=== PATIENT | female | born 1935 | race Caucasian/White ===

== ENCOUNTER 2016-12-24 07:24 | Inpatient (IN) | payer MEDICARE, OTHER ==
[~2016-12-24] VITALS: Ht 149.9 cm; Wt 47.2 kg
[2016-12-24 08:33] LABS: BASOPHILS 0.1 % (0.0-2.0); EOSINOPHILS 0.1 % (0-7); HEMATOCRIT 36.8 % (36.0-48.0); HEMOGLOBIN 12.5 g/dL (12-16); IMMATURE GRANULOCYTES 0.6 % (0-5); LYMPHOCYTES 4.7 % (15-50); MCH 32.5 pg (26.0-34.0); MCV 95.6 fL (80.0-100.0); MEAN PLATELET VOLUME 8.4 fL (7.4-10.4); NEUTROPHILS 87.5 % (40-80); PLATELET COUNT 244 10x3/uL (130-400); RBC 3.85 10x6/uL (4.00-5.40); RDW 12.7 % (11.5-14.5)
[2016-12-24 08:37] LABS: APTT 32.4 SECONDS (22.8-39.4); INR 1.1 (0.85-1.17); PROTIME 14.1 SECONDS (11.6-15.0)
[2016-12-24 08:44] LABS: ALBUMIN 2.9 g/dL (3.4-5.0); ANION GAP 14.7 mmol/L (8-16); BILIRUBIN - TOTAL 0.68 mg/dL (0.2-1.3); CALCIUM 8.5 mg/dL (8.5-10.1); CARBON DIOXIDE 27.6 mmol/L (21.0-32.0); CREATININE - SERUM 1.1 mg/dL (0.6-1.3); POTASSIUM - SERUM 3.3 mmol/L (3.5-5.1); PROTEIN - SERUM 6.8 g/dL (6.4-8.2)
[2016-12-24 14:00] VITALS: BP 113/52
--- NOTE | 2016-12-24 15:30 | NUR ---
ARRIVED FROM ER, DENIES NEEDS, BED LOWEST POSITION, LEVI MAT BED ALARM ON, NO S/S OF DISTRESS, PAIN ON HER LEFT LABIA TO LEFT BUTTOCKS, IV LT FOREARM NS @75, DENIES PAIN, CALL LIGHT IN REACH, WILL CONTINUE TO MONITOR
--- NOTE | 2016-12-24 16:15 | NUR ---
ASSESSMENT PER ADMIT FLOW SHEET. LEFT LABIA RED AND SWOLLEN WITH SMALL RAISED AREA IN VERY CENTER OF WOUND(APPROXIMATELY ERASER/ PEN HEAD SIZED). SITE IS WITHOUT DRAINAGE. REDNESS GOES ALL THE WAY AROUND AND COVERS THE ENTIRE LEFT BUTTOCK.ENTIRE AREA DESCRIBED IS HARD AND WARM TO TOUCH.
[2016-12-24 16:21] VITALS: BP 113/52; BMI 21.0
[2016-12-24] MEDS ORDERED: CALCIUM 600 +1 EAC3 PO (17:29)
[2016-12-24] MEDS ORDERED: CLARITIN-D1 TAB.SR1 PO (17:30)
[2016-12-24] MEDS ORDERED: SYNTHROID75 MCG PO (17:31)
[2016-12-24] MEDS ORDERED: TRIAMTERENE-HCT1 TA1 PO (17:31)
--- NOTE | 2016-12-24 19:30 | NUR ---
PT RECEIVED SITTING UP IN BED WATCHING TELEVISION. PT DAUGHTER AT BEDSIDE. PT ALERT AND ORIENTED X3. RESPIRATIONS EVEN AND UNLABORED. LUNG SOUNDS CLEAR BILATERALY. ABD SOFT AND NONTENDER UPON PALPATION. PT DENIES PAIN AT THIS TIME. IV TO LEFT WRIST WITH NS @ 75 NOTED TO BE PATENT, DRESSING CLEAN, DRY, AND INACT. IV SITE FREE FROM REDNESS OR EDEMA. PT DENIES NEEDS AT THIS TIME. BED IN LOW POSITION. CALL LIGHT AND H2O IN PT REACH. BED IN LOW POSITION. SIDE RAILS UP X2.
[2016-12-24 20:00] VITALS: BP 92/51
--- NOTE | 2016-12-24 21:30 | NUR ---
PT SITTING UP IN BED WATCHING TELEVISION. NO S/S OF DISTRESS NOTED. RESP EVEN AND UNLABORED. PT DENIES PAIN OR NEEDS AT THIS TIME. PT DAUGHTER AT BEDSIDE. CALL LIGHT AND H2O IN PT REACH. BED IN LOW POSITION. SIDE RAILS UP X2.
--- NOTE | 2016-12-24 23:30 | NUR ---
PT RESTING IN BED WITH EYES CLOSED. NO S/S OF DISTRESS NOTED. RESP EVEN AND UNLABORED. PT DAUGHTER SLEEPING AT BEDSIDE. CALL LIGHT AND H2O IN PT REACH. BED IN LOW POSITION. SIDE RAILS UP X2.
[2016-12-25] VITALS (7 sets, daily range): BP systolic 98–135; BP diastolic 42–74; Ht 149.9 cm; Wt 47.2 kg
--- NOTE | 2016-12-25 04:00 | NUR ---
PATIENT SLEEPING WITH NO DISTRESS NOTED. AGREE WITH VP CORPORATE DEVELOPMENT ASSESSMET.
[2016-12-25 04:49] LABS: BASOPHILS 0.1 % (0.0-2.0); EOSINOPHILS 0.8 % (0-7); HEMATOCRIT 31.3 % (36.0-48.0); HEMOGLOBIN 10.5 g/dL (12-16); IMMATURE GRANULOCYTES 0.8 % (0-5); LYMPHOCYTES 7.7 % (15-50); MCH 32.2 pg (26.0-34.0); MCHC 33.5 g/dL (31.0-37.0); MEAN PLATELET VOLUME 8.3 fL (7.4-10.4); NEUTROPHILS 82.6 % (40-80); PLATELET COUNT 228 10x3/uL (130-400); RBC 3.26 10x6/uL (4.00-5.40); RDW 12.6 % (11.5-14.5); WBC 15.9 10x3/uL (4.8-10.8)
[2016-12-25 05:08] LABS: CALCIUM 7.7 mg/dL (8.5-10.1); CARBON DIOXIDE 24.2 mmol/L (21.0-32.0); CHLORIDE - SERUM 101 mmol/L (98-107); POTASSIUM - SERUM 3.3 mmol/L (3.5-5.1); SODIUM 135 mmol/L (136-145); UREA NITROGEN 18 mg/dL (7-18); eGFR NON AFRICAN AMERICAN 85 mL/min (90-120)
[2016-12-25 05:13] LABS: CALC OSMOLALITY 270 mosm/kg (275-300); CREATININE - SERUM 0.7 mg/dL (0.6-1.3); GLUCOSE 85 mg/dL (74-106)
--- NOTE | 2016-12-25 08:02 | NUR ---
RESTING IN BED, LEVI ALARM ON, BED LOWEST POSIITON, SKIN PREP COMPLETED, SLIGHT COMPLAINT OF PAIN IN BOTTOM WHEN SITTING ON IT, NO DISTRESS NOTED, DENIES NEEDS, BED LOWEST POSITION, CALL LIGHT IN REACH, WILL CONITNUE TO MONITIOR
--- NOTE | 2016-12-25 08:28 | NUR ---
AWAKE AND ALERT AT THIS TIME. FAMILY AT BEDSIDE. PT IS NPO FOR SURGERY TO LEFT LABIA ABSCESS. DENIES NEEDS, CALL LIGHT IN REACH. WILL CONTINUE WITH PLAN OF CARE.
--- NOTE | 2016-12-25 16:54 | NUR ---
Patient Name: CRISTIAN RODRIGEZ Admission Status: ER Accout number: [id number] Admission Date: 12-24-2016 : 1935 Admission Diagnosis:CELLULITIS OF BUTTOCK Attending: KIRAN Current LOS: 1 Anticipated DC Date: 12-28-2016 Planned Disposition: Home Primary Insurance: MEDICARE A & B Discharge Planning Comments: CM MET WITH PATIENT AND FAMILY REGARDING D/C NEEDS AND PLANS. PATIENT STATED SHE HAS 3 STEPS W/O RAILS TO ENTER HOME. WHEN PATIENT DISCHARGES HER DAUGHTERS OR HER FRIEND WILL DRIVE HER HOME. PATIENT IS VERY INDEPENDENT PER HER DAUGHTER AND HAS NO DME AT HOME. PATIENTS PCP IS DR. GONSALES AND USES [facility] IN [place]. PATIENT DOES NOT WANT HOME HEALTH AT THIS TIME AND WANTS TO WAIT AND SEE HOW SHE FEELS CLOSER TO DISCHARGE. CM WILL CONTINUE TO FOLLOW PATIENT WITH D/C NEEDS AND PLANS. PCP [facility] [phone] PAULINO (FRIEND) [phone] ALEX IVEY (DAUGHTER) [phone] Planet[employer] Sky Show Technician: Suellen Fabian Is the patient Alert and Oriented? Yes 0 * How many steps to enter\exit or inside your home? 3 W/O RAIL 0 * PCP DR. GONSALES 0 * Pharm[facility] IN [place] 0 * Preadmission Environment Home Alone 0 * ADLs Independent 0 * Equipment None 0 * List name and contact numbers for known caregivers / representatives who currently or will assist patient after discharge: PAULINO (FRIEND) [phone] ALEX GOOD (DAUGHTER) [phone] 0 * Community resources currently utilized None 0 * Additional services required to return to the preadmission environment? Yes 0 * Can the patient safely return to the preadmission environment? Yes 0 * Has this patient been hospitalized within the prior 30 days at any hospital? No 0 Grand Total: 0
--- NOTE | 2016-12-25 19:30 | NUR ---
PT RECEIVED RESTING IN BED WITH EYES CLOSED. NO S/S OF DISTRESS NOTED AT THIS TIME. SEE SHIFT ASSESSMENTS. PT STATES PAIN IS CONTROLLED WITH DILAUDED POTATO CHIP PACKAGING MACHINE OPERATOR. IV TO LEFT WRIST NOTED TO BE PATENT, DRESSING CLEAN, DRY, AND INTACT, NO REDNESS OR EDEMA NOTED TO SITE. PT IS ALERT AND ORIENTED X4. RESIDENT'S TWO DAUGHTERS AT BEDSIDE. CALL LIGHT AND H2O IN PT REACH. BED IN LOW POSITION. SIDE RAILS UP X2.
--- NOTE | 2016-12-25 21:30 | NUR ---
PT RESTING IN BED WITH EYES CLOSED. NO S/S OF DISTRESS NOTED. RESP EVEN AND UNLABORED. TWO DAUGHTERS REMAIN AT BEDSIDE. CALL LIGHT AND H2O IN PT REACH. STAFF READINESS OFFICER CONTROL IN PT REACH. BED IN LOW POSITION. SIDE RAILS UP X2.
--- NOTE | 2016-12-25 23:30 | NUR ---
PT UP TO TOILET X 1 ASSIST. DRESSING TO BUTTOCK PARTIALLY OFF, DRESSING REINFORCED WITH ABD PAD AND TAPE. NO S/S OF DISTRESS NOTED. RESPIRATIONS EVEN AND UNLABORED. PT DENIES PAIN AT THIS TIME. CALL LIGHT AND H2O IN PT REACH. BED IN LOW POSITION. SIDE RAILS UP X2.
[2016-12-26] VITALS: BP 103/59
--- NOTE | 2016-12-26 01:30 | NUR ---
PT RESTING IN BED WITH EYES CLOSED. NO S/S OF DISTRESS NOTED. RESP EVEN AND UNLABORED. PT ABLE TO VOICE NEEDS, NO COMPLAINTS OR NEEDS VOICED AT THIS TIME. DAUGHTER SLEEPING AT BEDSIDE. CALL LIGHT AND H2O IN PT REACH. BED IN LOW POSITION. SIDE RAILS UP X2.
--- NOTE | 2016-12-26 04:00 | NUR ---
PATIENT SLEEPING WITH NO DISTRESS NOTED. CALL LIGHT WITHIN REACH.
[2016-12-26 07:40] LABS: BASOPHILS 0.2 % (0.0-2.0); EOSINOPHILS 1.1 % (0-7); HEMOGLOBIN 10.4 g/dL (12-16); IMMATURE GRANULOCYTES 2.1 % (0-5); LYMPHOCYTES 7.1 % (15-50); MCH 32.3 pg (26.0-34.0); MCHC 32.5 g/dL (31.0-37.0); MEAN PLATELET VOLUME 8.3 fL (7.4-10.4); MONOCYTES 6.5 % (2-11); PLATELET COUNT 246 10x3/uL (130-400); RBC 3.22 10x6/uL (4.00-5.40); RDW 12.9 % (11.5-14.5); WBC 15.5 10x3/uL (4.8-10.8)
[2016-12-26 07:47] LABS: MCV 99.4 fL (80.0-100.0)
[2016-12-26 07:59] LABS: CALC OSMOLALITY 279 mosm/kg (275-300); CALCIUM 7.4 mg/dL (8.5-10.1); CARBON DIOXIDE 21.1 mmol/L (21.0-32.0); CHLORIDE - SERUM 104 mmol/L (98-107); CREATININE - SERUM 0.6 mg/dL (0.6-1.3); GLUCOSE 88 mg/dL (74-106); POTASSIUM - SERUM 3.6 mmol/L (3.5-5.1); SODIUM 140 mmol/L (136-145); UREA NITROGEN 19 mg/dL (7-18); eGFR NON AFRICAN AMERICAN > 90 mL/min (90-120)
--- NOTE | 2016-12-26 08:00 | NUR ---
PATIENT AWAKE/ORIENT X4. OCYGEN ON AT 2L PER N/C. LEFT WRIST PERIPHERAL LINE NS AT 65CC/HR. DENIES ANY PAIN/DISC AT THIS TIME. PAS MANAGER GRAPHIC DILUDID. DAUGHERS AT BEDSIDE. CALL LIGHT WITHIN REACH. PATIENT VOICES NO NEEDS AT THIS TIME
--- NOTE | 2016-12-26 08:03 | NUR ---
CONTACT ISOLATION FOR MRSA IN WOUND MAINTAINED. PATIENT AWAKE/ALERT/ORIENT X4. PICC LINE IN RIGHT UPPER ARM PTN AT 50CC/HR. CAREER COORDINATOR MORPHINE PUMP. PATIENT DENIES ANY PAIN/DISC AT THIS TIME. CALL LIGHT WITHIN REACH. VOICES NO NEEDS AT THIS TIME
[2016-12-26 08:38] VITALS: BP 101/58
--- NOTE | 2016-12-26 08:50 | NUR ---
PATIENT IN BED WITH NO COMPLAINTS. DRESSING COMING OFF AT THIS TIME. EXPLAINED TO GONZALO DRAKE TO REINFORCE DRESSING AND WAIT TO GET ORDERS TO REMOVE PACKING. VERBALIZED UNDERSTANDING.
--- NOTE | 2016-12-26 10:00 | NUR ---
DAUGHTERS REMAIN IN ROOM WITH PATIENT. HELPING PATIENT TO AND FROM BATHROOM
--- NOTE | 2016-12-26 11:10 | NUR ---
PATIENT PUT IN CONTACT ISOLATION FOR MRSA IN WOUND BED.
--- NOTE | 2016-12-26 13:00 | NUR ---
DRESSING TO OUTTER LABIA AND BOTTOCKS FALLING OUT. KERLEX DRESSING REMOVED AND 4X4'S APPLIED. INNER PACKING OF DRESSING NOT TOUCHED.
[2016-12-26 13:04] VITALS: BP 99/54
[2016-12-26 16:43] VITALS: BP 91/48
--- NOTE | 2016-12-26 17:36 | NUR ---
DR CASTELLANOS HERE. ORDERED ONE TIME DOES OF NORMAL SALINE BOLUS
--- NOTE | 2016-12-26 17:47 | NUR ---
PATIENTS DRESSING, LABIA AREA, SATUATED. OUTTER DRESSING CHANGED AGAIN
[2016-12-26 20:00] VITALS: BP 100/53
--- NOTE | 2016-12-27 01:15 | NUR ---
REC'D PATIENT LYING SEMI FOWLERS IN BED. DAUGHTERS ARE IN ROOM WITH. DENIES PAIN AT THIS TIME. IS ALERT AND ORIENTED X4. CHANGED OUT TUBING AND STARTED ANTIBOTIC THAT WAS JUST HANGING. DENIED FURTHER NEEDS. INTRUCTED TO CALL IF NEEDED ANYTHING. VERBALIZED UNDERSTANDING. BED LOW, LOCKED, CALL LIGHT IN REACH.
[2016-12-27 04:00] VITALS: BP 107/48
--- NOTE | 2016-12-27 04:00 | NUR ---
PATIENT SLEEPING WITH NO DISTRESS NOTED. CALL LIGHT WITHIN REACH.
--- NOTE | 2016-12-27 05:57 | NUR ---
PATIENT IS RESTING IN BED COMFORTABLY. DENIES NEEDS AT THIS TIME. INTRUCTED TO CALL IF NEEDED ANYTHING. VERBALIZED UNDERSTANDING. BED LOW, LOCKED, CALL LIGHT IN REACH.
[2016-12-27 06:38] LABS: BASOPHILS 0.2 % (0.0-2.0); EOSINOPHILS 2.5 % (0-7); HEMATOCRIT 30.9 % (36.0-48.0); IMMATURE GRANULOCYTES 3.6 % (0-5); LYMPHOCYTES 10.9 % (15-50); MCH 31.5 pg (26.0-34.0); MCHC 32.4 g/dL (31.0-37.0); MCV 97.5 fL (80.0-100.0); MEAN PLATELET VOLUME 8.3 fL (7.4-10.4); MONOCYTES 6.1 % (2-11); NEUTROPHILS 76.7 % (40-80); PLATELET COUNT 274 10x3/uL (130-400); RBC 3.17 10x6/uL (4.00-5.40); RDW 12.7 % (11.5-14.5); WBC 12.1 10x3/uL (4.8-10.8)
[2016-12-27 06:52] LABS: CALC OSMOLALITY 278 mosm/kg (275-300); CALCIUM 7.4 mg/dL (8.5-10.1); CARBON DIOXIDE 24.1 mmol/L (21.0-32.0); CHLORIDE - SERUM 105 mmol/L (98-107); CREATININE - SERUM 0.6 mg/dL (0.6-1.3); GLUCOSE 112 mg/dL (74-106); POTASSIUM - SERUM 3.2 mmol/L (3.5-5.1); SODIUM 139 mmol/L (136-145); eGFR NON AFRICAN AMERICAN > 90 mL/min (90-120)
[2016-12-27 06:53] LABS: UREA NITROGEN 12 mg/dL (7-18)
--- NOTE | 2016-12-27 07:15 | NUR ---
REPORT RECEIVED FROM LINUX DEVELOPER NURSE. CALL LIGHT IN REACH.
[2016-12-27 08:35] VITALS: BP 123/48
--- NOTE | 2016-12-27 09:36 | NUR ---
ASSESSMENT COMPLETED. AM MEDS ADMINISTERED. DAUGHTER AT BEDSIDE. CALL LIGHT IN REACH. WILL CONTINUE WITH PLAN OF CARE.
--- NOTE | 2016-12-27 10:22 | NUR ---
AWAKE ALERT WATCHING TV QUIETLY AT PRESET DENIES ANY NEEDS AT THIS TIME.
[2016-12-27 11:23] VITALS: BP 110/57
--- NOTE | 2016-12-27 12:40 | NUR ---
EATING LUNCH AT THIS TIME. FAMILY IN ROOM. CALL LIGHT IN REACH.
--- NOTE | 2016-12-27 14:45 | NUR ---
DENIES NEEDS AT THIS TIME. CALL LIGHT IN REACH.
[2016-12-27 15:50] VITALS: BP 111/62
--- NOTE | 2016-12-27 16:40 | NUR ---
DAUGHTERS AT BEDSIDE. CALL LIGHT IN REACH. DENIES NEEDS.
--- NOTE | 2016-12-27 18:02 | NUR ---
NO CHANGES IN INITIAL ASSESSMENT. CALL LIGHT IN REACH. WILL CONTINUE WITH PLAN OF CARE.
[2016-12-27 19:00] VITALS: BP 112/64
--- NOTE | 2016-12-28 03:20 | NUR ---
RESTING WITH EYES CLOSED, SNORING RESP, VISITOR SLEEPING IN RECLINER, FALL PRECAUTIONS IN PLACE, CL IN REACH
--- NOTE | 2016-12-28 03:36 | NUR ---
CHANGED PATIENTS DRESSING ON BOTTOM @1999. NO DISTRESS NOTED. PATIENT ALERT AND ORIENTED X4. DENIED FURTHER NEEDS. INTRUCTED TO CALL IF NEEDED ANYTHING. VERBALIZED UNDERSTANDING.
--- NOTE | 2016-12-28 03:37 | NUR ---
PATIENT RESTING COMFORTABLY IN BED. DENIES NEEDS AT THIS TIME. INTRUCTED TO CALL IF NEEDED ANYTHING.
[2016-12-28 04:00] VITALS: BP 113/62
[2016-12-28 06:05] LABS: HEMATOCRIT 29.9 % (36.0-48.0); HEMOGLOBIN 9.8 g/dL (12-16); RBC 3.03 10x6/uL (4.00-5.40); WBC 10.6 10x3/uL (4.8-10.8)
[2016-12-28 06:06] LABS: BASOPHILS 0.4 % (0.0-2.0); EOSINOPHILS 3.7 % (0-7); IMMATURE GRANULOCYTES 3.7 % (0-5); LYMPHOCYTES 12.2 % (15-50); MCH 32.3 pg (26.0-34.0); MCHC 32.8 g/dL (31.0-37.0); MCV 98.7 fL (80.0-100.0); MEAN PLATELET VOLUME 8.5 fL (7.4-10.4); MONOCYTES 6.7 % (2-11); NEUTROPHILS 73.3 % (40-80); PLATELET COUNT 258 10x3/uL (130-400)
[2016-12-28 06:23] LABS: CALC OSMOLALITY 271 mosm/kg (275-300); CALCIUM 7.7 mg/dL (8.5-10.1); CARBON DIOXIDE 26.1 mmol/L (21.0-32.0); CHLORIDE - SERUM 105 mmol/L (98-107); CREATININE - SERUM 0.7 mg/dL (0.6-1.3); GLUCOSE 97 mg/dL (74-106); POTASSIUM - SERUM 3.1 mmol/L (3.5-5.1); SODIUM 137 mmol/L (136-145); UREA NITROGEN 8 mg/dL (7-18); eGFR NON AFRICAN AMERICAN 85 mL/min (90-120)
[2016-12-28 08:04] VITALS: BP 103/59
[2016-12-28 12:11] VITALS: BP 115/67
[2016-12-28 15:10] VITALS: BP 105/56
--- NOTE | 2016-12-28 16:40 | NUR ---
DENIES NEEDS AT THIS TIME. RESPIRATIONS EVEN AND NON LABORED. CALL LIGHT IN REACH AND BED IN LOWEST POSITION WITH WHEELS LOCKED. WILL CONTINUE WITH PLAN OF CARE.
--- NOTE | 2016-12-28 18:00 | NUR ---
PT HAS HAD PACKING REMOVED PER DR REBOLLEDO TODAY. CLEANSED WOUND PER VERBAL ORDER DR REBOLLEDO WITH H2O2. PT TOLERATED WELL. DAUGHTERS AT BEDSIDE ASSIST WITH MOST CARE.
[2016-12-29] VITALS: BP 115/68
--- NOTE | 2016-12-29 01:20 | NUR ---
PATIENT LYING IN BED. ALERT AND ORIENTED X4. DENIED PAIN AT THIS TIME. DENIED FURTHER NEEDS. INSTRUCTED THAT WHEN SHE HAS A BM THAT I NEED TO SEE IT BEFORE SHE CLEANS UP. VERBALIZED UNDERSTANDING. BED LOW, LOCKED, CALL LIGHT IN REACH. DAUGHTER AT BEDSIDE.
--- NOTE | 2016-12-29 02:00 | NUR ---
PATIENT HAD A BM @2300 LOOKED AND BM CAME OUT OF THE ANUS, WILL REPORT THAT TO THE ONCOMING NURSE. CHANGED DRESSING. NOW PATIENT IS RESTING COMFORTABLY IN BED. NO DITRESS NOTED. INTRUCTED TO CALL IF NEEDED ANYTHING. BED LOW, LOCKED, CALL LIGHT IN REACH.
--- NOTE | 2016-12-29 03:00 | NUR ---
PT IN BED WITH NO DISTRESS. RESPIRATIONS EVEN AND UNLABORED. SIDE RAILS X 2. BED IS LOW. CALL LIGHT IN REACH.
[2016-12-29 04:00] VITALS: BP 128/77
[2016-12-29 06:31] LABS: BASOPHILS 0.3 % (0.0-2.0); EOSINOPHILS 3.5 % (0-7); HEMATOCRIT 31.3 % (36.0-48.0); HEMOGLOBIN 10.1 g/dL (12-16); IMMATURE GRANULOCYTES 5.1 % (0-5); LYMPHOCYTES 11.2 % (15-50); MCH 32.1 pg (26.0-34.0); MCHC 32.3 g/dL (31.0-37.0); MCV 99.4 fL (80.0-100.0); MEAN PLATELET VOLUME 8.5 fL (7.4-10.4); MONOCYTES 5.8 % (2-11); NEUTROPHILS 74.1 % (40-80); PLATELET COUNT 285 10x3/uL (130-400); RBC 3.15 10x6/uL (4.00-5.40); WBC 8.9 10x3/uL (4.8-10.8)
[2016-12-29 06:57] LABS: ALBUMIN 1.9 g/dL (3.4-5.0); ALKALINE PHOSPHATASE 78 U/L (46-116); ALT (SGPT) 19 U/L (10-68); BILIRUBIN - TOTAL 0.26 mg/dL (0.2-1.3); CALCIUM 7.7 mg/dL (8.5-10.1); CARBON DIOXIDE 28.7 mmol/L (21.0-32.0); CHLORIDE - SERUM 107 mmol/L (98-107); GLUCOSE 112 mg/dL (74-106); POTASSIUM - SERUM 3.2 mmol/L (3.5-5.1); PROTEIN - SERUM 5.2 g/dL (6.4-8.2); SODIUM 141 mmol/L (136-145)
[2016-12-29 06:59] LABS: CALC OSMOLALITY 278 mosm/kg (275-300); CREATININE - SERUM 0.5 mg/dL (0.6-1.3); UREA NITROGEN 5 mg/dL (7-18); eGFR NON AFRICAN AMERICAN > 90 mL/min (90-120)
[2016-12-29 08:39] VITALS: BP 120/68
--- NOTE | 2016-12-29 09:20 | NUR ---
DRESSING CHANGE DONE PER ORDER NO ACUTE DISTRESS NOTED DENEIS PAIN OR DISCOMFORT UP WITH ASSIST TO BR FOR BM.
[2016-12-29 11:43] VITALS: BP 123/64
--- NOTE | 2016-12-29 15:24 | NUR ---
NUTRITION MONITORING & EVAL CHART REVIEWED, PT VISIT. TOLERATING REG DIET, CURRENT PO INTAKE POOR. WILL CONTINUE TO PROVIDE DIET, HONOR FOOD PREFERENCES. RD FOLLOWING
[2016-12-29 17:04] VITALS: BP 137/65
--- NOTE | 2016-12-29 17:44 | NUR ---
DRESSING CHANED PER SOILING NO ACUTE DISTRESS NTOED PT HAS HEMMERHOIDS THAT ARE HAVING SOME BLEEDING NOTED DR REBOLLEDO AWARE ON ROUNDS NEW ORDER FOR PREPARATION H OINTMENT NEEDED
--- NOTE | 2016-12-29 22:08 | NUR ---
PATIENT RESTING IN BED. NO SIGNS OF DISTRESS NOTED. ALERT AND ORIENT. FAMILY MEMBER AT BED SIDE. SHIFT ASSESSMENT COMPLETED. DENIES ANY NEEDS AT THIS TIME. BED LOW. CALL LIGHT IN REACH
[2016-12-30] VITALS: BP 122/75
[2016-12-30 04:00] VITALS: BP 128/73
--- NOTE | 2016-12-30 04:00 | NUR ---
PATIENT SLEEPING WITH NO DISTRESS NOTED. AGREE WITH DISPATCH MACHINE RUNNER ASSESSMENT.
[2016-12-30 05:19] LABS: BASOPHILS 0.2 % (0.0-2.0); EOSINOPHILS 2.8 % (0-7); HEMATOCRIT 30.4 % (36.0-48.0); HEMOGLOBIN 9.9 g/dL (12-16); LYMPHOCYTES 12.7 % (15-50); MCH 31.7 pg (26.0-34.0); MCHC 32.6 g/dL (31.0-37.0); MEAN PLATELET VOLUME 8.4 fL (7.4-10.4); MONOCYTES 6.9 % (2-11); NEUTROPHILS 72.4 % (40-80); PLATELET COUNT 272 10x3/uL (130-400); RBC 3.12 10x6/uL (4.00-5.40); RDW 12.8 % (11.5-14.5); WBC 9.2 10x3/uL (4.8-10.8)
[2016-12-30 05:28] LABS: MCV 97.4 fL (80.0-100.0)
[2016-12-30 05:42] LABS: ALBUMIN 1.8 g/dL (3.4-5.0); ALKALINE PHOSPHATASE 74 U/L (46-116); ALT (SGPT) 22 U/L (10-68); CALC OSMOLALITY 278 mosm/kg (275-300); CALCIUM 7.9 mg/dL (8.5-10.1); CARBON DIOXIDE 28.4 mmol/L (21.0-32.0); CHLORIDE - SERUM 107 mmol/L (98-107); CREATININE - SERUM 0.5 mg/dL (0.6-1.3); GLUCOSE 109 mg/dL (74-106); POTASSIUM - SERUM 3.2 mmol/L (3.5-5.1); PROTEIN - SERUM 4.9 g/dL (6.4-8.2); SODIUM 141 mmol/L (136-145); UREA NITROGEN 5 mg/dL (7-18); eGFR NON AFRICAN AMERICAN > 90 mL/min (90-120)
--- NOTE | 2016-12-30 07:38 | NUR ---
PT AOX4 RESP EVEN AND NONLABORED PT DENIES NEEDS AT THIS TIME BED AT LOWEST SETTING CALL LIGHT WITHIN REACH WILL CONTINUE TO MONITOR
[2016-12-30 08:33] VITALS: BP 126/69
--- NOTE | 2016-12-30 10:41 | NUR ---
CM REASSESSMENT NOTE: PATIENT IS DISCHARGING HOME TODAY WITH [facility] AND FAMILY IS DRIVING HER HOME. PATIENT HAD NO OTHER NEEDS.
[2016-12-30 12:00] VITALS: BP 128/78
[2016-12-30] MEDS ORDERED: PREPARATION H O57 GM TOPICAL (12:24)
[2016-12-30] MEDS ORDERED: ZYVOX600 MG PO (12:28)
[2016-12-30] MEDS ORDERED: NORCO 7.5/325 T1 TA1 PO (12:55)
--- NOTE | 2016-12-30 16:50 | NUR ---
PT AOX4 IV DISCONTINUE WITH CATHETER INTACT PT LEAVING VIA WHEELCHAIR VIA PRIVATE VEHICLE WITH FAMILY
--- NOTE | 2017-01-01 09:40 | CN ---
PATIENT NAME:CRISTIAN RODRIGEZ MEDICAL RECORD: [id number] : 37 LOCATION:[id number] ADMIT DATE: 12/24/16 ACCOUNT: [id number] CONSULTING PHYSICIAN: RUBY REBOLLEDO MD REFERRING PHYSICIAN: RUBÉN BECK MD DATE OF CONSULTATION: 12/24/2016 CHIEF COMPLAINT: Pain. HISTORY OF PRESENT ILLNESS: The patient was admitted through the Emergency Room. She has an indurated, erythematous, tender left buttock. The area of erythema covers almost all the buttock and extends to the anus. I noted no drainage. There is no eschar. The abscess is not pointing. I am uncertain whether this is a primary buttock abscess or if this is a perirectal or perianal abscess. I am going to plan for drainage in the operating room. The risks, possible complications, alternatives to anal evaluation under anesthesia, debridement of left buttock abscess, possible fistulotomy, possible drainage of a perirectal abscess were explained to the patient. She elects to proceed. Symptoms are of recent onset. Palpation aggravates. Nothing alleviates. The pain is an 8/10 on the pain scale. The patient was admitted to medical data control clerk. PAST MEDICAL AND SURGICAL HISTORY: Hypothyroidism, on replacement therapy, atypical chest pain, hypertension. SOCIAL HISTORY: Does not drink and does not smoke. HOME MEDICINES: Synthroid as well as Trianic, as well as Bactrim. ALLERGIES: No known drug allergies. REVIEW OF SYSTEMS: No chest pain, no shortness of breath, no abdominal pain, no flank pain, no back pain, positive for buttock pain, positive for anal tenderness. No dizziness. Positive for rash, positive for swelling, positive for induration. No history of bleeding disorder or bleeding problems. No history of frequent infections. PHYSICAL EXAMINATION: GENERAL: The patient does not appear chronically ill. She does appear acutely ill. VITAL SIGNS: Reviewed. The entire physical examination was performed in the presence of a female nurse. HEAD: External ears appear normal. EYES: Extraocular movements are intact. NECK: Trachea is midline. CHEST: No intercostal retractions. PULMONARY: Nonlabored, no stridor. ABDOMEN: No peritonitis with movement. EXTREMITIES: No peripheral cyanosis. INTEGUMENT: As described above. PSYCHIATRIC: Anxious affect. NEUROLOGIC: Nonfocal, no lethargy. The patient answers questions appropriately, moves all extremities well. BACK: Mild thoracic kyphosis. LYMPHATICS: No lymphangitic streaking of the exposed extremities. ANAL: No enlargement of the external hemorrhoids. CONSULT REPORT [id number] CRISTIAN RODRIGEZ IMPRESSION: Left buttock abscess, possible perirectal abscess, possible perianal abscess, possible fistula. PLAN: As described above. Continue IV antibiotics for now. The patient had eaten on and therefore will undergo operation the next day on Wednesday. TRANSINT:[id number] Voice Confirmation ID: [id number] DOCUMENT ID: [id number] RUBY REBOLLEDO MD at 0940 CC: RUBÉN BECK MD and RACHEL GONSALES [id number] DICTATION DATE: 12/25/16 1413 CUSTOM FEED CORN OPERATOR: 12/25/16 1723 DIS IN 12/30/16 [facility] [address] [place] [address]
--- NOTE | 2017-01-01 09:40 | OP ---
PATIENT NAME: CRISTIAN RODRIGEZ MEDICAL RECORD: [id number] :36 LOCATION:D.[id number] ADMISSION DATE:12/24/16 SURGEON: YAW REBOLLEDO MD DATE OF OPERATION: 12/25/2016 PREOPERATIVE DIAGNOSIS: Left buttock abscess. POSTOPERATIVE DIAGNOSIS: Horseshoe type perirectal abscess, complex with extension into the left buttock as well as into the left labia majora. PROCEDURE: Excisional debridement with marsupialization and packing of a horseshoe abscess involving the left buttock and left labia majora. SURGEON: Yaw Rebolledo MD. CELLULAR EQUIPMENT REPAIRER: None. BLOOD LOSS: 50 cc. ANESTHESIA: General. COMPLICATIONS: None. The risks, possible complications and alternatives to the procedure were explained to the patient. She elects to proceed. The discussion specifically included, but was not limited to, bleeding requiring emergency reoperation, infection, possible need for colostomy and the possibility of postoperative anal stenosis or fecal incontinence. OPERATIVE COURSE: The patient was conveyed to the operating room electively on 12/25/2016. General anesthesia was induced by the anesthesia staff. The patient was placed in the lithotomy position. The buttocks and perineum was sterilely prepped and draped. I inserted the U-shaped anal retractors in to the anus. I evacuated some fecal material. I pressed on a pointing area on the left buttock, which was at 3 o'clock in relation to the anus. I noted no evidence of purulent drainage into the anus or rectum. A small incision was accomplished over this area that was pointing. I obtained some cultures. Purulence was identified in a large degree. I then took hydrogen peroxide under pressure while viewing the anus and rectum with a U-shapes proctoscope, checked for any evidence of a fistula. I noted no evidence of bubbling into the anus or rectum and therefore, no evidence of a fistula. An excisional debridement was carried out. The debridement included skin, subcutaneous tissue, abscess cavity. The dimensions of the debrided skin were 2.5 x 3.0 cm. I inserted my finger into the abscess cavity. It tracked anteriorly up into the left labia majora. It tracked along the left side of the rectum and then, it tracked posteriorly around the rectum and in front of the sacrum. It actually crossed the midline, traveled over into the right side, making this a horseshoe type of perirectal abscess. The abscess appeared to be fairly high as well. This makes it also more complex type of situation. I curetted out the abscess cavity. I again injected hydrogen peroxide under pressure and examined the anus or rectum with the proctoscope while this was being done and there was no bubbling of fluid into the rectum and therefore, no evidence of a full thickness rectal injury or perforation. OPERATIVE REPORT [id number] CRISTIAN RODRIGEZ I then marsupialized the wound with a running locking 3-0 Vicryl Rapide suture. I then packed the extensive abscess cavity with a 6-inch Kerlix that have been soaked in 1/4 strength Dakin's. A sterile dressing was applied. The patient was then extubated and conveyed to post-anesthesia care unit where she was in stable condition. I have informed the family of the gravity of the patient's situation and the possible need for a subsequent colostomy. She is going to require significant analgesia. She will need to be in the hospital at least over the weekend. We will plan to remove the packing either on Wednesday or Wednesday. My plan would be to not repack the patient. If she would require repacking, this would require a return to the operating room as she would not be able to tolerate repacking of the wound without anesthesia or sedation. TRANSINT:[id number] Voice Confirmation ID: [id number] DOCUMENT ID: [id number] YAW REBOLLEDO MD at 0940 CC: RUBÉN BECK MD [id number] DICTATION DATE: 12/25/16 1600 PAPER SALES REPRESENTATIVE: 12/25/161932 DIS IN 12/30/16 [facility] [address] [place] [address]
== END 2016-12-30 16:51 | disposition home health service (06) | DRG 357 ==
LOC: D.ER 07:24 → D.MS 09:53
PROVIDERS: Emergency Medicine; Family Medicine; Surgery; ADMIT Family Medicine
PROC: 0JBB0ZZ Excision of Perineum Subcutaneous Tissue and Fascia, Open Approach (ICD-10-PCS; principal; 2016-12-25 14:15)
DX: K61.0 Anal abscess (principal); N76.4 Abscess of vulva; L03.317 Cellulitis of buttock; I10 Essential (primary) hypertension; E03.9 Hypothyroidism, unspecified; E86.0 Dehydration; E87.6 Hypokalemia

== ENCOUNTER → 2017-02-08 07:46 | Outpatient (CLI) | payer MEDICARE, OTHER ==
[2016-12-25 12:32] VITALS: BMI 21.0
[~2017-02-08 07:46] MED LIST: CALCIUM 600 +1 EAC3 PO; CLARITIN-D1 TAB.SR1 PO; NORCO 7.5/325 T1 TA1 PO; PREPARATION H O57 GM TOPICAL; SYNTHROID75 MCG PO; TRIAMTERENE-HCT1 TA1 PO; ZYVOX600 MG PO
== END | disposition home or self-care (01) ==
LOC: D.CT 07:46
DX: J45.909 Unspecified asthma, uncomplicated (principal)

== ENCOUNTER → 2017-10-15 12:03 | Outpatient (CLI) | payer MEDICARE, OTHER ==
[2016-12-25 12:32] VITALS: BMI 21.0
== END | disposition home or self-care (01) ==
LOC: D.RT 12:03
DX: J45.909 Unspecified asthma, uncomplicated (principal)

== ENCOUNTER 2018-03-17 07:52 | Inpatient (IN) | payer MEDICARE, OTHER ==
[2018-03-17] VITALS (28 sets, daily range): BP systolic 109–153; BP diastolic 55–82; BMI 20.6
[~2018-03-17] VITALS: Ht 149.9 cm; Wt 49.1 kg
[2018-03-17 08:28] LABS: BASOPHILS 0.5 % (0-2); EOSINOPHILS 1.9 % (0-7); HEMOGLOBIN 11.6 g/dL (12-16); IMMATURE GRANULOCYTES 0.2 % (0-5); LYMPHOCYTES 28.4 % (15-50); MCH 32.2 pg (26.0-34.0); MCHC 33.1 g/dL (31.0-37.0); MCV 97.2 fL (80.0-100.0); MEAN PLATELET VOLUME 8.5 fL (7.4-10.4); MONOCYTES 10.2 % (2-11); NEUTROPHILS 58.8 % (40-80); PLATELET COUNT 254 10x3/uL (130-400); RDW 12.4 % (11.5-14.5); WBC 6.2 10x3/uL (4.8-10.8)
[2018-03-17 08:29] LABS: APTT 26.3 SECONDS (22.8-39.4); INR 1.01 (0.85-1.17); PROTIME 12.9 SECONDS (11.6-15.0)
[2018-03-17 08:34] LABS: ALBUMIN 3.5 g/dL (3.4-5.0); ANION GAP 11.1 mmol/L (8-16); BILIRUBIN - TOTAL 0.43 mg/dL (0.2-1.3); CALCIUM 9.2 mg/dL (8.5-10.1); CARBON DIOXIDE 28.8 mmol/L (21.0-32.0); CREATININE - SERUM 0.8 mg/dL (0.6-1.3); POTASSIUM - SERUM 3.9 mmol/L (3.5-5.1); PROTEIN - SERUM 6.3 g/dL (6.4-8.2)
[2018-03-17 12:23] LABS: APPEARANCE CLEAR (CLEAR); BILIRUBIN NEGATIVE (NEGATIVE); COLOR YELLOW (YELLOW); GLUCOSE NEGATIVE (NEGATIVE); KETONE NEGATIVE (NEGATIVE); NITRITE NEGATIVE (NEGATIVE); PROTEIN NEGATIVE (NEGATIVE); SPECIFIC GRAVITY 1.015 (1.005-1.020); UROBILINOGEN NORMAL (NORMAL)
[2018-03-17 12:24] LABS: BACTERIA MODERATE /hpf (NONE SEEN); EPITHELIAL CELLS 0-5 /hpf (0-5); MUCUS <1+ /lpf (NONE SEEN); RED CELLS - URINE 0-5 /hpf (0-5); WHITE CELLS - URINE 0-5 /hpf (0-5)
[2018-03-17] MEDS ORDERED: MULTIPLE VITAMI1 TA1 PO (13:51)
[2018-03-17 14:36] LABS: HEMATOCRIT 28.6 % (36.0-48.0); HEMOGLOBIN 9.6 g/dL (12-16)
[2018-03-17] MEDS ORDERED: SINGULAIR10 MG PO (16:04)
[2018-03-17 16:41] LABS: HEMATOCRIT 28.5 % (36.0-48.0); HEMOGLOBIN 9.9 g/dL (12-16)
[2018-03-17 20:03] LABS: HEMATOCRIT 27.5 % (36.0-48.0); HEMOGLOBIN 9.5 g/dL (12-16)
[2018-03-18] VITALS (43 sets, daily range): BP systolic 120–159; BP diastolic 48–118; Ht 149.9 cm; Wt 49.1 kg
[2018-03-18 00:27] LABS: HEMATOCRIT 22.6 % (36.0-48.0); HEMOGLOBIN 7.8 g/dL (12-16)
[2018-03-18 09:17] LABS: BASOPHILS 0.3 % (0-2); EOSINOPHILS 0.9 % (0-7); IMMATURE GRANULOCYTES 0.2 % (0-5); LYMPHOCYTES 22.3 % (15-50); MCH 32.3 pg (26.0-34.0); MCHC 34.8 g/dL (31.0-37.0); MEAN PLATELET VOLUME 8.3 fL (7.4-10.4); MONOCYTES 9.3 % (2-11); RBC 3.65 10x6/uL (4.00-5.40); WBC 6.4 10x3/uL (4.8-10.8)
[2018-03-18 09:25] LABS: ANION GAP 12.2 mmol/L (8-16); CALCIUM 7.7 mg/dL (8.5-10.1); CARBON DIOXIDE 24.4 mmol/L (21.0-32.0); CREATININE - SERUM 0.8 mg/dL (0.6-1.3); POTASSIUM - SERUM 3.6 mmol/L (3.5-5.1)
[2018-03-18 09:32] LABS: HEMATOCRIT 33.9 % (36.0-48.0); HEMOGLOBIN 11.8 g/dL (12-16); MCV 92.9 fL (80.0-100.0); PLATELET COUNT 160 10x3/uL (130-400)
[2018-03-18 12:34] LABS: HEMATOCRIT 35.1 % (36.0-48.0); HEMOGLOBIN 12.4 g/dL (12-16)
[2018-03-18 16:05] LABS: HEMATOCRIT 35.3 % (36.0-48.0); HEMOGLOBIN 12.3 g/dL (12-16)
[2018-03-19] VITALS (24 sets, daily range): BP systolic 114–151; BP diastolic 63–94
[2018-03-19 07:19] LABS: BASOPHILS 0.3 % (0-2); EOSINOPHILS 1.9 % (0-7); HEMATOCRIT 36.5 % (36.0-48.0); HEMOGLOBIN 12.8 g/dL (12-16); IMMATURE GRANULOCYTES 0.3 % (0-5); LYMPHOCYTES 23.8 % (15-50); MCH 32.7 pg (26.0-34.0); MCHC 35.1 g/dL (31.0-37.0); MCV 93.1 fL (80.0-100.0); MEAN PLATELET VOLUME 8.5 fL (7.4-10.4); MONOCYTES 7.8 % (2-11); NEUTROPHILS 65.9 % (40-80); PLATELET COUNT 187 10x3/uL (130-400); RBC 3.92 10x6/uL (4.00-5.40); RDW 13.6 % (11.5-14.5); WBC 7.7 10x3/uL (4.8-10.8)
[2018-03-20] VITALS (14 sets, daily range): BP systolic 112–155; BP diastolic 61–90
[2018-03-20 04:16] LABS: BASOPHILS 0.2 % (0-2); EOSINOPHILS 2.5 % (0-7); HEMATOCRIT 36.5 % (36.0-48.0); HEMOGLOBIN 12.7 g/dL (12-16); IMMATURE GRANULOCYTES 0.2 % (0-5); MCH 32.7 pg (26.0-34.0); MCHC 34.8 g/dL (31.0-37.0); MCV 94.1 fL (80.0-100.0); MEAN PLATELET VOLUME 8.3 fL (7.4-10.4); MONOCYTES 8.2 % (2-11); NEUTROPHILS 73.9 % (40-80); PLATELET COUNT 194 10x3/uL (130-400); RBC 3.88 10x6/uL (4.00-5.40); RDW 13.2 % (11.5-14.5); WBC 8.9 10x3/uL (4.8-10.8)
[2018-03-20 04:32] LABS: CALC OSMOLALITY 284 mosm/kg (275-300); CALCIUM 7.8 mg/dL (8.5-10.1); CARBON DIOXIDE 23.1 mmol/L (21.0-32.0); CHLORIDE - SERUM 111 mmol/L (98-107); CREATININE - SERUM 0.6 mg/dL (0.6-1.3); GLUCOSE 105 mg/dL (74-106); POTASSIUM - SERUM 3.2 mmol/L (3.5-5.1); SODIUM 143 mmol/L (136-145); eGFR NON AFRICAN AMERICAN > 90 mL/min (90-120)
[2018-03-20 04:37] LABS: UREA NITROGEN 13 mg/dL (7-18)
[2018-03-21] VITALS: BP 131/71
[2018-03-21 04:00] VITALS: BP 141/78
[2018-03-21 04:21] LABS: BASOPHILS 0.2 % (0-2); EOSINOPHILS 2.4 % (0-7); HEMATOCRIT 35.8 % (36.0-48.0); HEMOGLOBIN 12.2 g/dL (12-16); IMMATURE GRANULOCYTES 0.2 % (0-5); LYMPHOCYTES 20.2 % (15-50); MCH 32.6 pg (26.0-34.0); MCHC 34.1 g/dL (31.0-37.0); MCV 95.7 fL (80.0-100.0); MEAN PLATELET VOLUME 8.4 fL (7.4-10.4); MONOCYTES 8.5 % (2-11); NEUTROPHILS 68.5 % (40-80); PLATELET COUNT 215 10x3/uL (130-400); RBC 3.74 10x6/uL (4.00-5.40); RDW 13.2 % (11.5-14.5); WBC 8.3 10x3/uL (4.8-10.8)
[2018-03-21 08:25] VITALS: BP 134/80
[2018-03-21 11:49] VITALS: BP 134/76
== END 2018-03-21 15:38 | disposition home or self-care (01) | DRG 811 ==
LOC: D.ER 07:52 → D.CVICU 11:40 → D.EDHOLD 11:40 → D.CVICU 12:22 → D.MS 03-20 13:03
PROVIDERS: Family Medicine; Internal Medicine Gastroenterology
DX: D64.9 Anemia, unspecified (principal); K57.91 Diverticulosis of intestine, part unspecified, without perforation or abscess with bleeding; E03.9 Hypothyroidism, unspecified; I10 Essential (primary) hypertension; E87.6 Hypokalemia